=== PATIENT | female | born 1955 | race Caucasian/White ===

== ENCOUNTER 2016-06-01 21:06 | Observation (INO) | payer OTHER ==
[2016-06-01] MEDS ORDERED: ASPIRIN 81 MG TAB.CHEW PO ONE (21:33)
[2016-06-01] MEDS ORDERED: NITROGLYCERIN 0.4 MG/TAB BTL SL PRN (21:33)
[2016-06-01] MEDS ORDERED: ASPIRIN 81 MG TAB.CHEW ONE (21:36)
--- NOTE | 2016-06-01 21:43 | ERNOTE ---
<Ara Salas - Last Filed: 06/01/16 22:06> Medical Problem HPI - Narrative Date of Service: 06/01/16 - General Chief Complaint: General Assessment Time Seen by Provider: 06/01/16 21:27 Source: patient, family Exam Limitations: no limitations - Immun/Allergies/Home Medications Immunizations: IMMUNIZATION HX Immunizations Up to Date Yes History of Influenza Vaccine No Hx Pneumococcal Vaccination No Allergies/Adverse Reactions: Allergies Penicillins Allergy (Verified 06/01/16 21:18) erythromycin base Adverse Reaction (Verified 06/01/16 21:18) Home Medications: HOME MEDICATIONS Atenolol [Tenormin] 100 mg PO DAILY 03/24/15 [Last Taken Unknown] Cyclobenzaprine HCl [Flexeril] 10 mg PO TID PRN #30 tab 03/24/15 [Last Taken Unknown] Ibuprofen [Motrin] 600 mg PO Q6H PRN #40 tab 03/24/15 [Last Taken Unknown] Acetaminophen [Pain Reliever] 500 mg PO BID 06/01/16 [Last Taken Unknown] Calcium Carbonate [Tums] 300 mg PO PRN 06/01/16 [Last Taken Unknown] Loratadine [Claritin] 10 mg PO DAILY 06/01/16 [Last Taken Unknown] Omeprazole 20 mg PO DAILY 06/01/16 [Last Taken Unknown] - History of Present History Narrative: Pt. comes in with c/o L lateral chest pain and substernal chest pain that radiates to her back for five days. Pt. also states that she has had stomach cramps and bloating recentlybut it is different that the chest pain. Pt. denies any injury or alleviating aggravating factors but does state that the pain is intermittent and resolves spontaneously then returns suddenly. Pt. denies any SOB, diarrhea, or fevers but does state taht when she experiences the pain she develops diaphoresis, nausea, and vomiting. Pt. denies any prehospital treatment. Review of Systems - Review of Systems Constitutional: Present: diaphoresis, fatigue EYE: Present: no symptoms reported ENT: Present: no symptoms reported Respiratory: Present: no symptoms reported. Absent: shortness of breath, cough , orthopnea, wheezing Cardiology: Present: chest pain. Absent: palpitations, syncope, edema Gastrointestinal/Abdominal: Present: nausea, vomiting, abdominal pain - upper abdominal cramping, other - bloating. Absent: diarrhea, constipation Genitourinary: Present: no symptoms reported Musculoskeletal: Present: no symptoms reported. Absent: back pain, joint pain Skin: Present: no symptoms reported. Absent: rash Neurological: Present: no symptoms reported. Absent: anxiety, dizziness/light- headedness, weakness, numbness, tingling All Other Systems: All systems neg except as marked - Patient's Past Medical History Patient History - Medical: GERD Patient History - Cardiac/Respiratory: Hypertension Patient History - Cancer: No Hx of Cancer Patient History - Surgical Procedures: T & A Patient History - Other: None - Social History Living Situations: spouse Abuse History: No History of abuse Psych History: No pertinent hx Smoking Status: Never smoker Alcohol Use: none Drug Use: none - Immunizations Immunizations Up to Date: Yes Hx Pneumococcal Vaccination: No History of Influenza Vaccine: No Physical Exam - Physical Exam General Appearance: Present: wd/wn, alert, no apparent distress Eye Exam: Normal inspection: bilateral, PERRL: bilateral, EOMI: bilateral Ears, Nose, Throat: Present: normal ENT inspection Respiratory: Present: no respiratory distress, normal breath sounds, no accessory muscle use, chest nontender, lungs clear Cardiovascular/Chest: Present: regular rate, rhythm, no murmur, normal peripheral pulses Gastrointestinal/Abdominal: Present: normal bowel sounds, nontender, nondistended, soft, no organomegaly Back Exam: Present: normal inspection, normal range of motion, no CVA tenderness , no vertebral tenderness Extremity Exam: Present: normal inspection, non-tender, normal range of motion, no edema Neurological Exam: Present: alert, oriented, normal mood/affect, no motor/ sensory deficits Skin Exam: Present: diaphoresis, pallor Lymphatic Exam: Present: no adenopathy ED Progress - Vital Signs Patient's Vital Signs:: I have reviewed the patient's vital signs. Vital Signs: Vital Signs 06/01/16 21:11 Temperature 35.5 C L Pulse Rate 88 Respiratory 19 Rate Blood Pressure 175/103 O2 Sat by Pulse 97 Oximetry - EKG EKG: RBBB, other - SR with septal wall damage EKG read: Interp. by me EKG Comments: no acute changes but no comparison EKG - Progress/Reassessment Chief Complaint: General Assessment - Transfer of Care Physician Sign Out: Ara Salas Receiving Physician: Vinny Amaya Pending Results: Labs, X-ray results Expected Disposition: Discharge Departure - Departure Clinical Impression: Cholecystitis, acute Chest pain Qualifiers: Chest pain type: other chest pain Qualified Code(s): R07.89 - Other chest pain [facility] Condition: Fair <Vinny Amaya - Last Filed: 06/02/16 05:01> Medical Problem HPI - Immun/Allergies/Home Medications Immunizations: IMMUNIZATION HX Immunizations Up to Date Yes History of Influenza Vaccine No Hx Pneumococcal Vaccination No Physical Exam - Physical Exam Gastrointestinal/Abdominal: Present: tenderness - RUQ mod and mild in the epigastrium ED Progress - Results and Orders Patient's Lab Results:: I have reviewed the patient's lab results. Results and Orders: Laboratory Tests 06/01/16 06/01/16 06/01/16 22:08 22:08 22:08 WBC 17.7 H Hgb 14.8 Hct 45.0 Plt Count 249 Neutrophils # 13.3 H PT 11.0 INR (Anticoag Therapy) 1.06 PTT (Yue) 29.9 Sodium 137 Potassium 3.6 Chloride 102 Carbon Dioxide 25.1 Anion Gap 13.5 BUN 11 Creatinine 0.79 Est GFR (Non-Af Amer) 79 Random Glucose 120 H Calcium 9.2 Total Bilirubin 0.9 AST 14 ALT 22 Alkaline Phosphatase 45 L Troponin I Less than 0.017 Total Protein 8.5 H Albumin 3.8 Amylase Lipase 06/01/16 23:50 WBC Hgb Hct Plt Count Neutrophils # PT INR (Anticoag Therapy) PTT ([place]) Sodium Potassium Chloride Carbon Dioxide Anion Gap BUN Creatinine Est GFR (Non-Af Amer) Random Glucose Calcium Total Bilirubin AST ALT Alkaline Phosphatase Troponin I Total Protein Albumin Amylase 61 Lipase 125 - Vital Signs Vital Signs: Vital Signs 06/01/16 06/01/16 21:11 22:34 Temperature 35.5 C L Pulse Rate 88 81 Respiratory 19 16 Rate Blood Pressure 175/103 151/56 O2 Sat by Pulse 97 94 Oximetry - EKG EKG Comments: Probable old changes include RBBB and possible old septal DC. - X-Ray X-Ray #1 X-Ray: chest Interpretation: Interp. by me X-ray Comments: normal chest, no acute cardiopulmonary changes X-Ray #2 X-Ray: abdomen Interpretation: Interp. by me X-ray Comments: Some increased stool throughout the colon, no evidence of obstruction - CT/Ultrasound CT/Ultrasound Narrative: US RUQ abdomen: Increased echotexture of the liver suggests hepatic steatosis Echoes with the gallbladder suggest gallbladder sludge. no descrete cholelithiasis seen. question gallbladder wall thickening and pericholecystic fluid. gallbladder is distended. common bile duct dilated at 1.0 cm, consider further evaluation CT abd/pelvis with IV and oral contrast: Cholelithiasis with diffuse thickening of the gallbladder wall and stranding in the pericholecystic fat consistent with acute cholecystitis 1.3 cm left renal cyst diverticulosis without diverticulitis fatty infiltration of the ascending colon Multilevel degenerative disc disease with spondylosis. - Progress/Reassessment Progress Note-Subjective: 06/02/16 00:[address] Hayes about the case. He suggests a CT abd/ pelvis with contrast to further evaluate. 06/02/16 03:[address] Hayes about the CT results. He requests admit to medicine, consult him and he will see the patient in the AM 06/02/16 03:49 Spoke with Shalonda EASLEY, hospitalist she agrees with admit and requests rocephin and flagyl
[2016-06-01 22:14] LABS: Hemoglobin 14.8 gm/dL (12.5-16.0); Mean Cell Volume 85.6 fl (78-100); Mean Corpuscular Hemoglobin 28.1 pg (27-31); Mean Corpuscular Hgb Conc 32.9 g/dl (32-36); Mean Platelet Volume 9.6 fl (6.0-9.5); Neutrophil # 13.3 K/mm3 (1.3-6.0); Neutrophil % 74.8 % (42-75.0); Platelet Count 249 K/mm3 (150-450); Red Blood Count 5.26 M/mm3 (4.2-5.4); Red Cell Distribution Width 13.6 % (11.5-14.0); White Blood Count 17.7 K/mm3 (4.0-10.5)
[2016-06-01 22:33] LABS: ALT 22 U/L (19-67); AST 14 U/L (0-48); Albumin * 3.8 gm/dl (3.4-5.0); Alkaline Phosphatase * 45 U/L (50-170); Anion Gap 13.5 mmol/L (6.8-13.8); BUN/Creatinine Ratio 13.9 (9.0-21.6); Bilirubin, Total 0.9 mg/dL (0.0-1.1); Blood Urea Nitrogen 11 mg/dL (3-23); Calcium * 9.2 mg/dL (7.9-10.9); Carbon Dioxide 25.1 mmol/L (24-32.6); Chloride 102 mmol/L (97-106); Glucose * 120 mg/dL (70-110); Potassium 3.6 mmol/L (3.4-4.6); Sodium 137 mmol/L (132-142); Total Protein 8.5 gm/dL (6.2-8.2); Troponin I Less than 0.017 ng/ml (0.00-0.10)
[2016-06-01 22:34] LABS: INR 1.06 INR (0.90-1.10); Partial Thrombolplastin Time 29.9 Seconds (24-32)
[2016-06-01 23:58] LABS: Amylase * 61 U/L (25-115); Lipase 125 U/L (73-393)
[2016-06-02] MEDS ORDERED: ONDANSETRON HCL/PF 2 MG/ML VIAL IV ONE (00:23)
[2016-06-02] MEDS ORDERED: NALBUPHINE HCL 20 MG/ML AMPUL IV ONE (00:23)
[2016-06-02] MEDS ORDERED: DIATRIZOATE MEGLU/DIATRIZO SOD 30 ML BTL PO ONE (00:23)
[2016-06-02] MEDS ORDERED: ONDANSETRON HCL/PF 2 MG/ML VIAL ONE (00:27)
[2016-06-02] MEDS ORDERED: NALBUPHINE HCL 20 MG/ML AMPUL ONE ×2 (00:27→04:39)
[2016-06-02] MEDS: metroNIDAZOLE/SODIUM CHLORIDE 500 MG/100 ML BAG IV SCH ×3 (04:25→19:16)
[2016-06-02] MEDS ORDERED: NALBUPHINE HCL 10 MG/ML AMPUL IV PRN ×2 (04:42→09:32)
[2016-06-02] MEDS ORDERED: NORMAL SALINE 1,000 ML IV PRN (05:31)
--- NOTE | 2016-06-02 05:32 | HP ---
Chief Complaint - Chief Complaint Date of Service: 06/02/16 Time of Service: 04:48 Chief Complaint: " Back Pain, Chest Pain, Abdminal Pain, N/V". Source of HPI- Pt; reliable, ER provider report. History of Present Illness: Ms. Mortensen is a 61-yr-old [place] pt of Dr. Soumya Reid with a PMH of: Anxiety Disorder & HTN. Pt states that on Monday night (05/28/16), she developed chest pain which radiated to her upper back. She also developed some upper Abdominal cramping. She reports that she has history of injured ribs and so she sought Chiropractor services for her chest/back discomfort, believing that her symptoms would get better. She thought her abdominal pain was related to ' pulled muscles.' She continued seeing the Chiropractor each day until Monday, but says that her pain never really got better. She also reports that sometime on Monday night, she developed nausea and vomiting and this occurred once. Last night, she says, the Upper Abdominal Pain seemed to get worse with each passing hour and so chose to come to [facility] ER. She states she has had no appetite , and the last good meal was Monday's supper. She denies fevers, but states she has had chills and night sweats 'off an on.' During evaluation at the ED, Leukocytosis was noted with a count of 17,000 otherwise all other laboratory studies were unremarkable. The US of Liver/Gall bladder showed questionable gall bladder wall thickening and distention. CT scan of the Abdomen was recommended by Dr. Maldonado.The results showed Cholelithiasis and Acute Cholecystitis. - Patient's Past Medical History Patient History - Medical: Anxiety, GERD Patient History - Cardiac/Respiratory: Hypertension Patient History - Cancer: No Hx of Cancer Patient History - Surgical Procedures: T & A Patient History - Other: None - Family History Father Family History - Cardiac/Respiratory: Coronary Heart Disease Mother Family History - Medical: Diabetes Type 2 Family History - Cardiac/Respiratory: Hypertension - Social History Living Situations: spouse Abuse History: No History of abuse Psych History: No pertinent hx Smoking Status: Never smoker Alcohol Use: none Drug Use: none - Immunizations Immunizations Up to Date: Yes Hx Pneumococcal Vaccination: No History of Influenza Vaccine: No Review Of Systems (GEN) - Review of Systems Generalized/Overall Review: Present: Chills, Fever, Diaphoresis. Absent: Weakness EENTM: Absent: Eye Pain, Nose Congestion Respiratory: Absent: Cough, Shortness of Breath Cardiac: Present: Chest Pain. Absent: Edema, Palpitations, Syncope Abdominal: Present: Nausea, Vomiting, Constipation Genitourinary: Absent: Burning, Urgency, Frequency, Hematuria Musculoskeletal: Present: Back Pain, Muscle Pain. Absent: Joint Pain Neurological: Present: Headache, Anxiety. Absent: Depressed, Emotional Problems , Weakness Skin: Absent: Dryness, Lesions, Bruising Endocrine: Absent: Intolerance to Cold, Intolerance to Heat, Increased Thirst Misc: All systems neg except as marked Allergies/Adverse Reactions: Allergies Allergy/AdvReac Type Severity Reaction Status Date / Time Penicillins Allergy Verified 06/01/16 21:18 erythromycin base AdvReac Verified 06/01/16 21:18 Home Medications: HOME MEDICATIONS Atenolol [Tenormin] 100 mg PO DAILY 03/24/15 [Last Taken Unknown] Ibuprofen [Motrin] 600 mg PO Q6H PRN #40 tab 03/24/15 [Last Taken Unknown] Acetaminophen [Pain Reliever] 500 mg PO BID 06/01/16 [Last Taken Unknown] Calcium Carbonate [Tums] 300 mg PO PRN 06/01/16 [Last Taken Unknown] Loratadine [Claritin] 10 mg PO DAILY 06/01/16 [Last Taken Unknown] Omeprazole 20 mg PO DAILY 06/01/16 [Last Taken Unknown] Cyclobenzaprine HCl [Flexeril] 10 mg PO BID PRN 06/02/16 [Last Taken Unknown] Exam - Exam Vital Signs: Vital Signs - Last Taken Temp 35.5 C L 06/01/16 21:11 Pulse 76 06/02/16 03:34 Resp 13 06/02/16 03:34 BP 148/48 06/02/16 03:34 Pulse Ox 91 06/02/16 03:34 Constitutional: Present: Alert, Oriented x3, Cooperative, No distress ENT Exam: Present: normal ENT inspection, hearing grossly normal Eye Exam: bilateral eye: normal inspection, PERRL Neck: Present: full range of motion, supple, normal inspection Back Exam: Present: normal inspection, no CVA tenderness Breasts: Present: Exam deferred Respiratory: Present: lungs clear, no accessory muscle use, No wheezing Cardiovascular/Chest: Present: normal peripheral pulses, regular rate, rhythm, no edema, no murmur Abdomen: Present: Normal bowel sounds, tender - Mid- Epigastric., guarding /Rectal: Present: Exam deferred Extremity: Present: normal range of motion, non-tender, normal inspection, no pedal edema Skin Exam: Present: warm/dry, no cyanosis Lymphatic: Present: no adenopathy Neurologic: Present: no motor/sensory deficits, alert, oriented x 3 Appearance: Present: appropriate appearance, appropriate insight Eye contact: Present: cooperative, good eye contact Thoughts: Present: normal thought pattern, no apparent hallucination Diagnostic Studies: Laboratory Results WBC 17.7 K/mm3 (4.0-10.5) H 06/01/16 22:08 RBC 5.26 M/mm3 (4.2-5.4) 06/01/16 22:08 Hgb 14.8 gm/dL (12.5-16.0) 06/01/16 22:08 Hct 45.0 % (37.0-47.0) 06/01/16 22:08 MCV 85.6 fl (78-100) 06/01/16 22:08 MCH 28.1 pg (27-31) 06/01/16 22:08 MCHC 32.9 g/dl (32-36) 06/01/16 22:08 RDW 13.6 % (11.5-14.0) 06/01/16 22:08 Plt Count 249 K/mm3 (150-450) 06/01/16 22:08 MPV 9.6 fl (6.0-9.5) H 06/01/16 22:08 Immature Gran % (Auto) 0.60 % (0.001-0.429) H 06/01/16 22:08 Immature Gran # (Auto) 0.10 K/mm3 (0.000-0.0310) H 06/01/16 22:08 Neutrophils % 74.8 % (42-75.0) 06/01/16 22:08 Lymphocytes % 16.6 % (20-51) L 06/01/16 22:08 Monocytes % 7.3 % (0.0-9) 06/01/16 22:08 Eosinophils % 0.5 % (0.0-3.0) 06/01/16 22:08 Basophils % 0.2 % (0.0-1.0) 06/01/16 22:08 Nucleated RBC % 0.0 k/mm3 (0-1) 06/01/16 22:08 Neutrophils # 13.3 K/mm3 (1.3-6.0) H 06/01/16 22:08 Lymphocytes # 3.0 k/mm3 (1.5-3.5) 06/01/16 22:08 Monocytes # 1.3 k/mm3 (0.0-1.0) H 06/01/16 22:08 Eosinophils # 0.1 k/mm3 (0.0-0.7) 06/01/16 22:08 Absolute Basophils 0.0 k/mm3 (0.0-0.1) 06/01/16 22:08 PT 11.0 Seconds (9.4-11.4) 06/01/16 22:08 INR (Anticoag Therapy) 1.06 INR (0.90-1.10) 06/01/16 22:08 PTT (Yue) 29.9 Seconds (24-32) 06/01/16 22:08 Sodium 137 mmol/L (132-142) 06/01/16 22:08 Plasma Sodium 137 mmol/L (130-142) 06/01/16 22:08 Potassium 3.6 mmol/L (3.4-4.6) 06/01/16 22:08 Chloride 102 mmol/L (97-106) 06/01/16 22:08 Carbon Dioxide 25.1 mmol/L (24-32.6) 06/01/16 22:08 Anion Gap 13.5 mmol/L (6.8-13.8) 06/01/16 22:08 BUN 11 mg/dL (3-23) 06/01/16 22:08 Creatinine 0.79 mg/dL (0.4-1.4) 06/01/16 22:08 Est GFR (Non-Af Amer) 79 mL/min (60-130) 06/01/16 22:08 BUN/Creatinine Ratio 13.9 (9.0-21.6) 06/01/16 22:08 Random Glucose 120 mg/dL (70-110) H 06/01/16 22:08 Calcium 9.2 mg/dL (7.9-10.9) 06/01/16 22:08 Calcium Adj for Albumin 9.0 mg/dL (8.4-10.2) 06/01/16 22:08 Total Bilirubin 0.9 mg/dL (0.0-1.1) 06/01/16 22:08 AST 14 U/L (0-48) 06/01/16 22:08 ALT 22 U/L (19-67) 06/01/16 22:08 Alkaline Phosphatase 45 U/L (50-170) L 06/01/16 22:08 Troponin I Less than 0.017 ng/ml (0.00-0.10) 06/01/16 22:08 Total Protein 8.5 gm/dL (6.2-8.2) H 06/01/16 22:08 Albumin 3.8 gm/dl (3.4-5.0) 06/01/16 22:08 Amylase 61 U/L (25-115) 06/01/16 23:50 Lipase 125 U/L (73-393) 06/01/16 23:50 Assessment/Plan - Assessment/Plan (1) Acute cholecystitis Assessment: Ms. Mortensen presented with C.C of upper abdominal pain and reported nausea vomiting. She reported intermittent chills and night sweats. Her labwork was mostly unremarkable except for a WBC of 17,000. She has no skin jaundice, but tenderness was noted on the Epigastric Region. An Abdominal US showed gallbladder wall thickening and distention, and recommended CT scan of the abdomen by Dr. Maldonado confirmed Cholelithiasis and Acute Cholecystitis. Will initiate medical treatment with IVF hydration, IV antibiotics, Analgesics, and Keep NPO in the event that Cholecystectomy surgery is deemed necessary by Dr. Maldonado. He is aware about pt and will evaluate this am. Recommended antibiotics are Flagyl PLUS Cefriaxone to cover for Gram negative bacteria and Anaerobes. Estimated LOS 2- days. Problem: Acute (2) Cholelithiasis Assessment: She is symptomatic and may require elective Cholecystectomy. Dr. Maldonado will see this am. Problem: Acute (3) HTN (hypertension) Assessment: Stable- Continue Atenolol. Problem: Chronic (4) Anxiety Problem: Chronic
[2016-06-02] MEDS ORDERED: CYCLOBENZAPRINE HCL 10 MG TABLET PO PRN (06:43)
[2016-06-02] MEDS ORDERED: IBUPROFEN 600 MG TABLET PO PRN (06:43)
[2016-06-02] MEDS ORDERED: CALCIUM CARBONATE 500 MG TAB.CHEW PO PRN (06:45)
[2016-06-02] MEDS: HYDROmorphone HCL 1 MG/ML DISP.SYRIN IV PRN ×2 (07:57→19:14)
[2016-06-02 07:58] LABS: Urine Bilirubin Negative (NEGATIVE); Urine Blood Negative /ul (NEGATIVE); Urine Ketone Negative (NEGATIVE); Urine Nitrite Negative (NEGATIVE); Urine Protein 15 mg/dL (NEGATIVE); Urine Specific Gravity 1.015 SP.GR. (1.005-1.010); Urine Urobilinogen Normal (NORMAL)
[2016-06-02] MEDS: ACETAMINOPHEN 500 MG TABLET PO SCH ×2 (08:00→21:16)
[2016-06-02] MEDS: ATENOLOL 100 MG TABLET PO SCH (08:01)
[2016-06-02] MEDS: LORATADINE 10 MG TABLET PO SCH (08:01)
[2016-06-02] MEDS: PANTOPRAZOLE SODIUM 20 MG TABLET.DR PO SCH (08:02)
[2016-06-02 08:07] LABS: Urine Appearance Clear; Urine Bacteria TRACE; Urine Color Dark Yellow; Urine RBC None Seen /hpf (0-5); Urine WBC TRACE /hpf (0-5)
[2016-06-02] MEDS ORDERED: ONDANSETRON HCL/PF 2 MG/ML VIAL IV PRN (09:01)
[2016-06-02] MEDS ORDERED: PROMETHAZINE HCL 12.5 MG in DEXTROSE 5 % IN WATER 50 ML IV PRN ×2 (09:01)
[2016-06-02] MEDS ORDERED: LEVOFLOXACIN/D5W 750 MG/150 ML BAG IV PRN (09:15)
[2016-06-02] MEDS: ONDANSETRON HCL/PF 2 MG/ML VIAL IV PRN ×2 (09:23→16:00)
[2016-06-02] MEDS: NALBUPHINE HCL 10 MG/ML AMPUL IV PRN ×3 (10:13→20:53)
[2016-06-02] MEDS ORDERED: NORMAL SALINE 1,000 ML IV ONE ×3 (11:40→14:55)
[2016-06-02] MEDS ORDERED: RINGERS SOLUTION,LACTATED 1,000 ML IV ONE (11:40)
[2016-06-02] MEDS ORDERED: BUPIVACAINE HCL/EPINEPHRINE 50 ML VIAL IJ ONE ×2 (12:10)
[2016-06-02] MEDS ORDERED: MUPIROCIN 22 APPL TUBE TP ONE (12:22)
[2016-06-02] MEDS: RINGERS SOLUTION,LACTATED 1,000 ML IV PRN (15:17)
--- NOTE | 2016-06-02 16:33 | OR ---
Operative Report - Dictated Report Narrative: DATE OF OPERATION: 06/02/2016 PREOPERATIVE DIAGNOSIS: Acute cholecystitis, cholelithiasis POSTOPERATIVE DIAGNOSIS: Severe acute cholecystitis with cholelithiasis ( pathology pending) OPERATION: Laparoscopic cholecystectomy SURGEON: TOMASZ Maldonado MD ANESTHESIA Gen. endotracheal Lion Jeronimo and Missael Hurtado CRNA INDICATIONS FOR PROCEDURE: The patient is a 61-year-old female presented to the emergency room last night with a 2 week history of vague upper abdominal substernal and back discomfort. She was found to have leukocytosis and evidence of acute cholecystitis on both ultrasound and CT scan. FINDINGS: Severe acute cholecystitis with cholelithiasis. NARRATIVE OF PROCEDURE: The patient was identified preoperatively. Prior to the administration of anesthetic a multidisciplinary timeout observed. With the patient in the supine position, SCDs were placed, 750 mg of IV Levaquin administered due to multiple antibiotic allergies. Mcfarland scope assisted intubation and general endotracheal anesthetic administered. The patient's abdomen was prepped with Betadine solution and a generous operating field outlined with 4 sterile towels. The remainder the patient was covered with a sterile disposable drape. An infraumbilical skin incision was made. Dissection was carried along the umbilical stalk until the fascia of the linea alba was encountered. This was incised. The peritoneum was then elevated and incised to allow entry into the abdomen under direct vision. A Hussan cannula was placed, and the abdomen insufflated with CO2. The laparoscopic camera was introduced and the abdomen briefly explored. The liver was enlarged with evidence of fatty infiltration. There was omentum adherent to the area of the gallbladder with inflammation. Those portions of the stomach, omentum, small and large intestine visualized appeared normal. Next under direct vision 3 additional working ports were inserted through separate skin incisions, one in the subxiphoid, one in the right upper quadrant, and one in the right flank. The omental adhesions to the apex of the inflamed gallbladder were gradually dissected by blunt and hydrostatic dissection. The gallbladder was then decompressed with a needle, clear bile was removed. The puncture site was then grasped. The apex of the gallbladder was retracted cephalad. Gradually the intense inflammatory adhesions between the omentum and gallbladder were lysed down to the expected location of the cystic duct. This portion of the operation took approximately one hour. The cystic duct was then dissected free for a sufficient distance for confident identification. It was doubly clipped and divided. The cystic artery was identified doubly clipped and divided. The gallbladder was then removed from the liver bed by retrograde electrocautery dissection. Prior to severing the last attachments of the gallbladder the liver bed was inspected and found to be hemostatic with no evidence of bile leak. The previously placed clips were seen to be intact. The right upper quadrant was suctioned clean. The last attachments of the gallbladder were divided. It was placed in an Endobag and parked in the right upper quadrant. The smaller working ports were withdrawn under direct vision to ensure entry site hemostasis. The gallbladder was removed in conjunction with the Hussan cannula. The pneumoperitoneum was allowed to escape, and after receiving a correct sponge needle and instrument count attention was turned to closing the abdomen. The fascia and peritoneum at the umbilicus were approximated with interrupted sutures of #1 Vicryl. Skin incisions were approximated with interrupted vertical mattress sutures of 4-0 nylon. The operative sites were washed and dried. Dressings of Bactroban ointment and large Band-Aids were applied to the small port sites. The umbilical incision was dressed with Bactroban ointment, 2 x 2, large Band-Aid and Medipore tape. The operative procedure was terminated at this point. The patient tolerated the anesthetic and procedure well without complication. There was less than 50 mL blood loss. The gallbladder was submitted to pathology. 0.5% Marcaine with epinephrine was used for local anesthetic infiltration. The patient was transferred to the recovery room awake, extubated, and in stable condition. Reviewed and electronically signed
[2016-06-03] MEDS: RINGERS SOLUTION,LACTATED 1,000 ML IV PRN ×2 (00:04→09:19)
[2016-06-03] MEDS: oxyCODONE HCL/ACETAMINOPHEN 1 TAB TABLET PO PRN ×3 (02:50→17:11)
[2016-06-03] MEDS: metroNIDAZOLE/SODIUM CHLORIDE 500 MG/100 ML BAG IV SCH ×2 (03:29→13:42)
[2016-06-03] MEDS ORDERED: NITROGLYCERIN 0.4 MG/TAB BTL SL PRN (06:52)
[2016-06-03] MEDS: PANTOPRAZOLE SODIUM 20 MG TABLET.DR PO SCH (09:21)
[2016-06-03] MEDS: ACETAMINOPHEN 500 MG TABLET PO SCH (09:21)
[2016-06-03] MEDS: ATENOLOL 100 MG TABLET PO SCH (09:21)
[2016-06-03] MEDS: LORATADINE 10 MG TABLET PO SCH (09:25)
[2016-06-03] MEDS ORDERED: LEVOFLOXACIN/D5W 750 MG/150 ML BAG IV SCH (11:55)
--- NOTE | 2016-06-03 15:05 | DS ---
(1) Cholecystitis with cholelithiasis Problem: Acute Qualifiers: Cholecystitis acuity: acute Biliary obstruction: without biliary obstruction (2) Anxiety Problem: Chronic (3) HTN (hypertension) Problem: Chronic Qualifiers: Hypertension type: essential hypertension Qualified Code(s): I10 - Essential (primary) hypertension Description of Stay: Otilia is a 61 year old female who presented to the ER with c/o chest pain and upper abdominal pain for 3-4 days that on 06/02/16 progressed to include nausea and vomiting. ER work up included a CT which showed acute cholecystitis with an elevated WBC. Dr. Hare (general surgery) was consulted and he agreed the patient was an acceptable surgical candidate. Patient was taken to surgery and a laparoscopic cholecystectomy was preformed by Dr. Hare. Post op patient removed well - was able to mobilize, had good oral intake and good urine output. On 06/03/16, dr. hare determined that the patient was ready for discharge. Dr. Hare went over discharge instructions with the patient, including no heavy lifting. The patient was discharged in stable condition with oral narcotic pain pills for pain management. Procedures Performed: see notes below List Procedures: Laparoscopic cholecystectomy performed by Dr. Hare on 06/02/16. Discharge Disposition: Home self care Disposition: Home self-care Condition: Stable Discharge Activity: Activity as tolerated Discharge Diet: General/regular food Referrals: Soumya Reid MD [Primary Care Provider] - Consultation Done:: Dr Hare (general surgery) Problem Oriented Discharge Instructions to Patient/Family: Laparoscopic Cholecystectomy, Care After, [id number] Additional Patient Instructions (free text): may shower, no heavy lifting. follow up with dr hare as scheduled. Follow up with Dr. Hare on May at 1:15 PM Prescriptions (Any new or edited meds): oxyCODONE HCL/ACETAMINOPHEN [Percocet 5 MG/325 MG] 2 tab PO Q6H PRN #30 tablet PRN Reason: Pain Complete Home Medications List: Complete Home Medication List: Atenolol [Tenormin] 100 mg PO DAILY 03/24/15 Ibuprofen [Motrin] 600 mg PO Q6H PRN #40 tab 03/24/15 Calcium Carbonate [Tums] 300 mg PO PRN 06/01/16 Loratadine [Claritin] 10 mg PO DAILY 06/01/16 Omeprazole 20 mg PO DAILY 06/01/16 Cyclobenzaprine HCl [Flexeril] 10 mg PO BID PRN 06/02/16 Nitroglycerin [Nitrostat] 0.4 mg SL Q5MIN PRN #0 btl 06/03/16 oxyCODONE HCL/ACETAMINOPHEN [Percocet 5 MG/325 MG] 2 tab PO Q6H PRN #30 tablet 06/03/16
[2016-06-03 15:08] VITALS: BP 144/66
== END 2016-06-03 18:30 | disposition home or self-care (01) ==
LOC: ER 21:06 → MS 06-02 03:56 → INTOOBSV 06-02 03:56
PROVIDERS: ADMIT Nurse Practitioner; ATTEND Internal Medicine
PROC: 0FT44ZZ Resection of Gallbladder, Percutaneous Endoscopic Approach (ICD-10-PCS; principal; 2016-06-02 12:00)
DX: K80.12 Calculus of gallbladder with acute and chronic cholecystitis without obstruction (principal); F41.9 Anxiety disorder, unspecified; I10 Essential (primary) hypertension
CPT/HCPCS: 36415; 47562; 71020; 74020; 74177; 76705; 80053; 81001; 82150; 83690; 84484; 85025; 85610; 85730; 88304; 93005; 96365; 96366; 96367; 96375; 96376; 99284; G0378

== ENCOUNTER 2016-10-11 22:00 | Emergency (ER) | payer OTHER ==
[2016-10-11 22:28] LABS: Hematocrit 50.5 % (37.0-47.0); Hemoglobin 16.1 gm/dL (12.5-16.0); Mean Cell Volume 87.1 fl (78-100); Mean Corpuscular Hemoglobin 27.8 pg (27-31); Mean Corpuscular Hgb Conc 31.9 g/dl (32-36); Mean Platelet Volume 9.9 fl (6.0-9.5); Platelet Count 323 K/mm3 (150-450); Red Cell Distribution Width 14.1 % (11.5-14.0); White Blood Count 21.3 K/mm3 (4.0-10.5)
[2016-10-11 22:33] LABS: Total Cells Counted 100
--- NOTE | 2016-10-11 22:48 | ERNOTE ---
Time Seen by Provider: 10/11/16 22:00 Stated Complaint: SOB Presenting Symptoms:: other - Respiratory distress Source: EMS Exam Limitations: clinical condition Immunizations: IMMUNIZATION HX Immunizations Up to Date Yes History of Influenza Vaccine No Hx Pneumococcal Vaccination No Allergies/Adverse Reactions: Allergies Penicillins Allergy (Verified 06/01/16 21:18) erythromycin base Adverse Reaction (Verified 06/01/16 21:18) Home Medications: HOME MEDICATIONS Atenolol [Tenormin] 100 mg PO DAILY 03/24/15 [Last Taken Unknown] Ibuprofen [Motrin] 600 mg PO Q6H PRN #40 tab 03/24/15 [Last Taken Unknown] Calcium Carbonate [Tums] 300 mg PO PRN 06/01/16 [Last Taken Unknown] Loratadine [Claritin] 10 mg PO DAILY 06/01/16 [Last Taken Unknown] Omeprazole 20 mg PO DAILY 06/01/16 [Last Taken Unknown] Cyclobenzaprine HCl [Flexeril] 10 mg PO BID PRN 06/02/16 [Last Taken Unknown] Nitroglycerin [Nitrostat] 0.4 mg SL Q5MIN PRN #0 btl 06/03/16 [Last Taken Unknown] oxyCODONE HCL/ACETAMINOPHEN [Percocet 5 MG/325 MG] 2 tab PO Q6H PRN #30 tablet 06/03/16 [Last Taken Unknown] - History of Present Ilness Narrative: Pt brought in by EMS with sudden onset of shortness of breath at home. upon arrival pt was obtunded and frothing at the mouth. reports of patient vomiting and possibly aspirating. EMS did give patient valium and phenergan enroute. due to pt's decreased LOC and respiratory difficulty decision to intubate was made soon after patient arrival. Pt was intubated and [facility] was called for immediate transfer. See procedures for intubation details Timing: getting worse Severity: severe Frequency/Possible Cause: Reports: other - possible aspiration Review of Systems - Narrative Narrative: ROS taken from - Review of Systems Constitutional: Absent: recent illness EYE: Present: no symptoms reported ENT: Present: no symptoms reported Respiratory: Present: shortness of breath, stridor - just before called EMS Cardiology: Present: no symptoms reported Gastrointestinal/Abdominal: Present: other - GERD symptoms Genitourinary: Present: no symptoms reported Musculoskeletal: Present: no symptoms reported Skin: Present: no symptoms reported Neurological: Present: no symptoms reported Endocrine: Present: no symptoms reported Hematologic/Lymphatic: Present: no symptoms reported - Patient's Past Medical History Patient History - Medical: Anxiety, GERD Patient History - Cardiac/Respiratory: Hypertension Patient History - Cancer: No Hx of Cancer Patient History - Surgical Procedures: T & A Patient History - Other: None - Family History Mother Family History - Medical: Diabetes Type 2 Family History - Cardiac/Respiratory: Hypertension Family History - Cancer: No pertinent family hx Father Family History - Medical: Family History - Cardiac/Respiratory: Coronary Heart Disease Family History - Cancer: No pertinent family hx - Social History Living Situations: spouse Abuse History: No History of abuse Psych History: No pertinent hx Alcohol Use: none Drug Use: none - Immunizations Immunizations Up to Date: Yes Hx Pneumococcal Vaccination: No History of Influenza Vaccine: No Physical Exam - Physical Exam General Appearance: Present: severe distress, other - obtunded Head Exam: Present: normal inspection, no evidence of injury Eye Exam: PERRL: bilateral Neck: Present: normal inspection, supple Respiratory: Present: respiratory distress, rales, rhonchi, stridor Cardiovascular/Chest: Present: tachycardia Gastrointestinal/Abdominal: Present: other - obese Extremity Exam: Present: no edema Neurological Exam: Present: other - obtunded. GCS 9, unable to follow directions. Occasionaly cries out and grabs at staff or oxygen mask Skin Exam: Present: diaphoresis, cyanosis ED Progress - Results and Orders Patient's Lab Results:: I have reviewed the patient's lab results. Results and Orders: Laboratory Tests 10/11/16 10/11/16 10/11/16 22:10 22:28 22:28 WBC 21.3 H Hgb 16.1 H Hct 50.5 H Plt Count 323 D-Dimer pCO2 74.8 H* pO2 75.6 L HCO3 21.7 Total CO2 24.0 Base Excess -10.0 L ABG pH 7.08 L* ABG O2 Sat (Measured) 88.5 L Sodium 140 Potassium 4.0 Chloride 103 Carbon Dioxide 26.5 Anion Gap 14.5 H BUN 21 D Creatinine 1.11 Est GFR (Non-Af Amer) 53 L D Random Glucose 331 H Calcium 8.0 Total Bilirubin 0.3 AST 11 ALT 27 Alkaline Phosphatase 53 Troponin I 0.155 H* B-Natriuretic Peptide 509 H Total Protein 8.1 Albumin 3.7 10/11/16 22:28 WBC Hgb Hct Plt Count D-Dimer 0.76 H pCO2 pO2 HCO3 Total CO2 Base Excess ABG pH ABG O2 Sat (Measured) Sodium Potassium Chloride Carbon Dioxide Anion Gap BUN Creatinine Est GFR (Non-Af Amer) Random Glucose Calcium Total Bilirubin AST ALT Alkaline Phosphatase Troponin I B-Natriuretic Peptide Total Protein Albumin - Vital Signs Patient's Vital Signs:: I have reviewed the patient's vital signs. Vital Signs: Vital Signs 10/11/16 22:02 Pulse Rate 149 H Respiratory 22 H Rate O2 Sat by Pulse 88 L Oximetry - EKG EKG read: Interp. by me EKG Comments: #1 Computer reading A-fib with RVR, RBBB. My reading is sinus tach with RBBB. #2 NSR with RBBB. - CT/Ultrasound CT/Ultrasound Narrative: CT head No evidence of acute CVA or hemorrhage - Progress/Reassessment Chief Complaint: Upper Respiratory Symptoms Progress Note-Subjective: 10/11/16 23:27 Pt remained hypertensive and tachycardic after intubation and 40mg labetolol was given IV. HR came down to the 90's BP came down systolic but diastolic remained high (148/122) Spoke with Dr. Shahriar Monique at the [facility] at 22:50 and he agrees to accept the patient in transfer directly to the MICU. He requests CT head prior to patient leaving the facility to R/O intracranial hemorrhage as a cause for aspiration. Discussed the patients condition with her . He reports she does not want to be "on machines" but did agree that she would want everything tried at this time. 10/12/16 00:02 CT report returned and was unremarkable. Called report to Faustina at the transfer call center, she will give report to Dr. Monique. Images and report were pushed digitally to the [facility] as well. 10/12/16 06:05 Procedures Intubation Method: endotrachial with venti Tube Size (cm): 7.0 Medications: Other - Etomidate 35mg and Rocuronium 70 mg Breath Sounds after Intubation: equal Intubation Complications: oral-unsuccessful attempt - x 2 with #3 mac blade, [place]oa scope used for successful intubation Post Intubation Xray: Yes Complications: Pt jose procedure well Departure - Departure Clinical Impression: Respiratory failure Qualifiers: Chronicity: acute Respiratory failure complication: hypoxia and hypercapnia Qualified Code(s): J96.01 - Acute respiratory failure with hypoxia Aspiration into lower respiratory tract Qualifiers: Encounter type: initial encounter Qualified Code(s): T17.800A - Unspecified foreign body in other parts of respiratory tract causing asphyxiation, initial encounter Disposition: [facility] Condition: Serious
[2016-10-11 22:51] LABS: Atypical (Reactive) Lymph 1 % (0-2); Eosinophil 2 % (0-3); Lymphocyte 51 % (20-51); Monocyte 8 % (0-9); Neutrophil 38 % (42-75); Neutrophil # 8.1 K/mm3 (1.3-6.0)
[2016-10-11] MEDS ORDERED: LABETALOL HCL 5 MG/ML VIAL IV ONE ×2 (22:53)
[2016-10-11 22:54] LABS: Albumin * 3.7 gm/dl (3.4-5.0); Anion Gap 14.5 mmol/L (6.8-13.8); BUN/Creatinine Ratio 18.9 (9.0-21.6); Bilirubin, Total 0.3 mg/dL (0.0-1.1); Ca. Corrected For Albumin 7.9 mg/dL (8.4-10.2); Carbon Dioxide 26.5 mmol/L (24-32.6); Dohle Bodies Trace; Giant Platelets 1+; Platelet Estimate Normal (NORMAL); RBC Morphology Normal (NORMAL); Total Protein 8.1 gm/dL (6.2-8.2); Toxic Granulation Trace
[2016-10-11 22:56] LABS: Troponin I 0.155 ng/ml (0.00-0.10)
[2016-10-11 23:55] VITALS: BP 163/90
== END 2016-10-11 23:31 | disposition short-term general hospital (02) ==
LOC: ER 22:00
DX: J96.01 Acute respiratory failure with hypoxia (principal); T17.800A Unspecified foreign body in other parts of respiratory tract causing asphyxiation, initial encounter; I45.10 Unspecified right bundle-branch block; R00.0 Tachycardia, unspecified; R79.89 Other specified abnormal findings of blood chemistry; I10 Essential (primary) hypertension

== ENCOUNTER 2016-12-13 18:00 | Emergency (ER) | payer OTHER ==
--- NOTE | 2016-12-13 18:43 | ERNOTE ---
Medical Problem HPI - Narrative Date of Service: 12/13/16 - General Chief Complaint: General Assessment Time Seen by Provider: 12/13/16 18:26 Source: patient, family, RN notes reviewed, old records Exam Limitations: no limitations - Immun/Allergies/Home Medications Immunizations: IMMUNIZATION HX Immunizations Up to Date Yes History of Influenza Vaccine No Hx Pneumococcal Vaccination No Allergies/Adverse Reactions: Allergies Penicillins Allergy (Verified 12/13/16 18:24) erythromycin base Adverse Reaction (Verified 12/13/16 18:24) Home Medications: HOME MEDICATIONS Calcium Carbonate [Tums] 500 mg PO TID PRN 06/01/16 [Last Taken Unknown] Nitroglycerin [Nitrostat] 0.4 mg SL Q5MIN PRN #0 btl 06/03/16 [Last Taken Unknown] Aspirin [Aspirin EC] 81 mg PO DAILY 10/26/16 [Last Taken Unknown] Atorvastatin Calcium [Lipitor] 40 mg PO DAILY 10/26/16 [Last Taken Unknown] Carvedilol [Coreg] 25 mg PO BID 10/26/16 [Last Taken Unknown] Clopidogrel Bisulfate [Plavix] 75 mg PO DAILY 10/26/16 [Last Taken Unknown] Hydrochlorothiazide [Hydrodiuril] 25 mg PO DAILY 10/26/16 [Last Taken Unknown] Lisinopril [Prinivil] 20 mg PO BID 10/26/16 [Last Taken Unknown] Pantoprazole Sodium [Protonix] 20 mg PO DAILY 10/26/16 [Last Taken Unknown] Acetaminophen [Tylenol] 1,000 mg PO BID 12/13/16 [Last Taken Unknown] Multivitamin [One Daily Multivitamin] 1 each PO DAILY 12/13/16 [Last Taken Unknown] - Pain Score Pain Score #1 Pain Score: 0 - History of Present History Narrative: 61 y/o female presents to the ED for elevated blood pressure. She had a [place] approximately 2 months ago. Her blood pressure has been well controlled on her current medications. She had been out shopping this afternoon and noticed that she did not feel right when she got home. She describes having a pressure and roaring inside her head. She checked her blood pressure and got 190/90. She currently denies any chest pain or shortness of breath, but reports that she still just does not feel well. Review of Systems - Review of Systems Constitutional: Absent: fever, chills EYE: Present: no symptoms reported ENT: Absent: nose congestion, sore throat Respiratory: Absent: shortness of breath, cough Cardiology: Absent: chest pain, palpitations, edema Gastrointestinal/Abdominal: Absent: nausea, abdominal pain Genitourinary: Present: no symptoms reported Musculoskeletal: Absent: muscle pain, joint pain Skin: Absent: rash, lesions Neurological: Absent: headache, dizziness/light-headedness Endocrine: Present: no symptoms reported Hematologic/Lymphatic: Present: easy bruising, easy bleeding Psych: Present: anxiety - Patient's Past Medical History Patient History - Medical: Anxiety, GERD Patient History - Cardiac/Respiratory: Coronary Heart Disease, Hypertension, Myocardial Infarction Patient History - Cancer: No Hx of Cancer Patient History - Surgical Procedures: Cardiac stent, T & A Patient History - Other: None LMP (females 10-50): Menopausal - Family History Mother Family History - Medical: Diabetes Type 2 Family History - Cardiac/Respiratory: Hypertension Family History - Cancer: No pertinent family hx Father Family History - Medical: Family History - Cardiac/Respiratory: Coronary Heart Disease Family History - Cancer: No pertinent family hx - Social History Living Situations: home Abuse History: No History of abuse Psych History: No pertinent hx Smoking Status: Former smoker Have you smoked in the past 12 months: No Alcohol Use: none Drug Use: none - Immunizations Immunizations Up to Date: Yes Hx Pneumococcal Vaccination: No History of Influenza Vaccine: No Physical Exam - Physical Exam General Appearance: Present: wd/wn, alert, no apparent distress, anxious Eye Exam: Normal inspection: bilateral Neck: Present: normal inspection, nontender, supple Respiratory: Present: no respiratory distress, normal breath sounds, no accessory muscle use, lungs clear Cardiovascular/Chest: Present: regular rate, rhythm, no murmur Extremity Exam: Present: normal inspection, no edema Neurological Exam: Present: alert, oriented, normal mood/affect, no motor/ sensory deficits Skin Exam: Present: normal color, warm/dry ED Progress - Results and Orders Patient's Lab Results:: I have reviewed the patient's lab results. - Vital Signs Patient's Vital Signs:: I have reviewed the patient's vital signs. Vital Signs: Vital Signs 12/13/16 18:13 Temperature 37.2 C Pulse Rate 77 Respiratory 18 Rate Blood Pressure 184/77 O2 Sat by Pulse 98 Oximetry - EKG EKG: NSR, RBBB EKG read: Reviewed by me - Progress/Reassessment Chief Complaint: General Assessment Progress:: Improved Plan - Plan Plan: Blood pressure improved 173/57, reassured patient regarding EKG and troponin not showing any acute process. She is being seen routinely in cardiac rehab and her BP is monitored there. Discussed watching the readings over the next few days and f/u with PCP if elevation persists. Patient in agreement with plan. Departure - Departure Clinical Impression: Elevated blood pressure reading Disposition: Home Follow Up Needed Condition: Good Instructions: Hypertension, [id number] Additional Instructions: Continue your routine medications Follow up with Dr. Reid if blood pressure elevations continue Referrals: Soumya Reid MD [Primary Care Provider] -
[2016-12-13 19:01] LABS: Hematocrit 37.1 % (37.0-47.0); Hemoglobin 12.4 gm/dL (12.5-16.0); Mean Cell Volume 86.1 fl (78-100); Mean Corpuscular Hemoglobin 28.8 pg (27-31); Mean Corpuscular Hgb Conc 33.4 g/dl (32-36); Mean Platelet Volume 8.9 fl (6.0-9.5); Neutrophil # 5.9 K/mm3 (1.3-6.0); Neutrophil % 53.1 % (42-75.0); Platelet Count 223 K/mm3 (150-450); Red Blood Count 4.31 M/mm3 (4.2-5.4); Red Cell Distribution Width 14.2 % (11.5-14.0)
[2016-12-13 19:19] LABS: ALT 26 U/L (19-67); AST 16 U/L (0-48); Albumin * 3.9 gm/dl (3.4-5.0); Alkaline Phosphatase * 37 U/L (50-170); Anion Gap 14.5 mmol/L (6.8-13.8); BUN/Creatinine Ratio 25.2 (9.0-21.6); Bilirubin, Total 0.4 mg/dL (0.0-1.1); Blood Urea Nitrogen 31 mg/dL (3-23); Ca. Corrected For Albumin 8.7 mg/dL (8.4-10.2); Calcium * 8.9 mg/dL (7.9-10.9); Carbon Dioxide 28.1 mmol/L (24-32.6); Chloride 100 mmol/L (97-106); Glucose * 133 mg/dL (70-110); Potassium 3.6 mmol/L (3.4-4.6); Sodium 139 mmol/L (132-142); Total Protein 8.1 gm/dL (6.2-8.2); Troponin I Less than 0.017 ng/ml (0.00-0.10)
[2016-12-13 19:32] VITALS: BP 173/57
== END 2016-12-13 19:46 | disposition home or self-care (01) ==
LOC: ER 18:00
DX: R03.0 Elevated blood-pressure reading, without diagnosis of hypertension (principal); Z95.5 Presence of coronary angioplasty implant and graft; K21.9 Gastro-esophageal reflux disease without esophagitis; I50.9 Heart failure, unspecified; Z87.891 Personal history of nicotine dependence